=== PATIENT | female | born 1985 | race Caucasian/White ===

== ENCOUNTER → 2023-09-03 | Outpatient (CLI) | payer OTHER | LOC: M WHC 13:34 | PROVIDERS: ATTEND Family Medicine | DX: N63.0 Unspecified lump in unspecified breast (principal) | CPT/HCPCS: 76642; 77066; G0279 ==

== ENCOUNTER → 2024-03-31 | Outpatient (CLI) | payer OTHER | LOC: M RAD 09:21 | PROVIDERS: ATTEND Nurse Practitioner | DX: I83.812 Varicose veins of left lower extremity with pain (principal) ==

== ENCOUNTER 2024-04-15 09:37 | Day surgery (SDC) | payer OTHER ==
[~2024-04-15] VITALS: Ht 170.2 cm; Wt 67.0 kg
[~2024-04-15 09:37] MED LIST: ATEN25TA PO; CITA20TA6 PO; FLUTISP; LIDOCAINE 2% 100MG/5ML SDV (FOR ANES.) As Ordered ONE; MIDAZOLAM INJ 2MG/2ML VIAL As Ordered ONE; ONDANSETRON 4MG 2ML VIAL As Ordered ONE; fentaNYL 100 MCG/2 ML INJECTION As Ordered ONE; propofoL 200 MG/20 ML VIAL As Ordered ONE
[2024-04-15] MEDS ORDERED: LIDOCAINE 1% SDV 5ML VIAL SC PRN (10:05)
[2024-04-15] MEDS ORDERED: FLUTISP (10:14)
[2024-04-15] MEDS: ACETAMINOPHEN 500 MG TAB PO ONE (10:20)
[2024-04-15] MEDS: LR 1,000 ML IV SCH (10:21)
[2024-04-15] MEDS: SCOPOLAMINE 1MG TRANSDERMAL PATCH TOP ONE (10:21)
[2024-04-15] MEDS ORDERED: GLYCOPYRROLATE INJ 0.2 MG/ML 2 ML VIAL As Ordered ONE (11:28)
[2024-04-15] MEDS ORDERED: KETOROLAC 60MG 2ML VIAL As Ordered ONE (11:28)
[2024-04-15] MEDS ORDERED: LR 1,000 ML IV SCH (11:50)
[2024-04-15] MEDS ORDERED: fentaNYL 100 MCG/2 ML INJECTION IV PRN (11:50)
[2024-04-15] MEDS ORDERED: ONDANSETRON 4MG 2ML VIAL IV PRN ×2 (11:50→12:30)
[2024-04-15] MEDS ORDERED: HYDROMORPHONE HCL 0.5 MG/ 0.5 ML SYRINGE IV PRN (11:50)
[2024-04-15] MEDS ORDERED: oxyCODONE 5MG TAB PO PRN ×2 (11:50→12:30)
[2024-04-15] MEDS ORDERED: diphenhydrAMINE 25MG CAP PO PRN (12:30)
[2024-04-15 12:32] VITALS: BP 116/69; TEMP 98.4; O2SAT 100
== END 2024-04-15 13:15 | disposition home or self-care (01) ==
LOC: M SDC 09:37
PROVIDERS: ATTEND General Practice
DX: N84.0 Polyp of corpus uteri (principal); G90.A Postural orthostatic tachycardia syndrome [POTS]; K21.9 Gastro-esophageal reflux disease without esophagitis; M79.7 Fibromyalgia; F41.9 Anxiety disorder, unspecified; Z79.899 Other long term (current) drug therapy; F17.210 Nicotine dependence, cigarettes, uncomplicated
CPT/HCPCS: 36415; 58558; 81025; 86850; 86900; 86901; 88305; J1100; J1596; J1885; J2250; J2405; J3010

== ENCOUNTER 2024-05-20 06:14 | Day surgery (SDC) | payer OTHER ==
[~2024-05-20] VITALS: Ht 170.2 cm; Wt 68.7 kg
[~2024-05-20 06:14] MED LIST changes: -LIDOCAINE 2% 100MG/5ML SDV (FOR ANES.) As Ordered ONE; -MIDAZOLAM INJ 2MG/2ML VIAL As Ordered ONE; -ONDANSETRON 4MG 2ML VIAL As Ordered ONE; -fentaNYL 100 MCG/2 ML INJECTION As Ordered ONE; -propofoL 200 MG/20 ML VIAL As Ordered ONE
[2024-05-20] MEDS: ACETAMINOPHEN 500 MG TAB PO ONE (07:00)
[2024-05-20] MEDS: SCOPOLAMINE 1MG TRANSDERMAL PATCH TOP ONE (07:00)
[2024-05-20 07:17] LABS: BASO % 0.6 % (0.0-1.0); EOS # 0.2 10^3/uL (0.0-0.5); EOS % 3.8 % (0.0-3.0); HEMATOCRIT 41.9 % (36.0-47.0); HEMOGLOBIN 13.9 g/dl (12.0-15.5); LYMPH % 41.8 % (24.0-44.0); MEAN CORPUSCULAR HEMOGLOBIN 29.3 pg (27.0-33.0); MEAN CORPUSCULAR HGB CONC 33.2 g/dl (32.0-36.5); MEAN CORPUSCULAR VOLUME 88.2 fl (80.0-96.0); MONO # 0.4 10^3/uL (0.0-0.8); MONO % 8.8 % (2.0-8.0); NEUTROPHILS # 2.1 10^3/uL (1.5-8.5); NEUTROPHILS % 44.8 % (36.0-66.0); PLATELET COUNT, AUTOMATED 201 10^3/uL (150-450); RED BLOOD COUNT 4.75 10^6/uL (4.00-5.40); WHITE BLOOD COUNT 4.8 10^3/uL (4.0-10.0)
[2024-05-20] MEDS ORDERED: LIDOCAINE 2% 100MG/5ML SDV (FOR ANES.) As Ordered ONE (07:17)
[2024-05-20] MEDS ORDERED: ROCURONIUM BROMIDE 50MG/5ML VIAL As Ordered ONE (07:17)
[2024-05-20] MEDS ORDERED: fentaNYL 250 MCG/5 ML INJECTION As Ordered ONE (07:17)
[2024-05-20] MEDS ORDERED: propofoL 200 MG/20 ML VIAL As Ordered ONE (07:17)
[2024-05-20] MEDS ORDERED: ONDANSETRON 4MG 2ML VIAL As Ordered ONE (07:17)
[2024-05-20] MEDS ORDERED: MIDAZOLAM INJ 2MG/2ML VIAL As Ordered ONE (07:18)
[2024-05-20] MEDS: LR 1,000 ML IV SCH (07:18)
[2024-05-20] MEDS: ceFAZolin SOD 2 GM IV ONCE IV ONE (07:18)
[2024-05-20] MEDS ORDERED: dexmedeTOMIDine (4MCG/ML)200MCG/50ML BTL (PRECEDEX) As Ordered ONE (07:22)
[2024-05-20 07:43] LABS: BLOOD UREA NITROGEN 12 MG/DL (9-23); CALCIUM LEVEL 9.1 MG/DL (8.5-10.1); CARBON DIOXIDE LEVEL 28 MMOL/L (20-31); CHLORIDE LEVEL 106 MMOL/L (98-107); CREATININE FOR GFR 0.79 MG/DL (0.55-1.30); GLOMERULAR FILTRATION RATE > 60.0 (>60); GLUCOSE, FASTING 81 MG/DL (60-100); POTASSIUM SERUM 3.9 MMOL/L (3.5-5.1); SODIUM LEVEL 141 MMOL/L (136-145)
[2024-05-20] MEDS: metroNIDAZOLE 500 MG in IV 1 EA IV ONE (08:00)
[2024-05-20] MEDS ORDERED: ePHEDrine SULFATE 25 MG/5 ML(5MG/ML) SYRINGE As Ordered ONE (08:24)
[2024-05-20] MEDS ORDERED: PHENYLephrine 500MCG 5ML (100MCG/ML) SYRINGE As Ordered ONE (08:24)
[2024-05-20] MEDS ORDERED: HYDROmorphone HCL 2MG/ML 1ML VIAL As Ordered ONE (09:26)
[2024-05-20] MEDS ORDERED: SUGAMMADEX SODIUM 500 MG/5 ML VIAL (BRIDION) As Ordered ONE (09:26)
[2024-05-20] MEDS ORDERED: KETOROLAC 30 MG/ML 1ML VIAL As Ordered ONE (09:26)
[2024-05-20] MEDS ORDERED: GLYCOPYRROLATE INJ 0.2 MG/ML 2 ML VIAL As Ordered ONE (09:38)
[2024-05-20] MEDS: FLUORESCEIN 10% (100MG/ML) 5ML VIAL As Ordered ONE (10:28)
[2024-05-20] MEDS ORDERED: oxyCODONE 5MG TAB PO PRN (11:00)
[2024-05-20] MEDS ORDERED: fentaNYL 100 MCG/2 ML INJECTION IV PRN (11:00)
[2024-05-20] MEDS ORDERED: ONDANSETRON 4MG 2ML VIAL IV PRN (11:00)
[2024-05-20] MEDS: HYDROMORPHONE HCL 0.5 MG/ 0.5 ML SYRINGE IV PRN (12:02)
[2024-05-20 12:20] VITALS: BP 109/61; TEMP 97.2; O2SAT 97
[2024-05-20] MEDS: ONDANSETRON 4MG TAB PO ONE (14:30)
== END 2024-05-20 14:45 | disposition home or self-care (01) ==
LOC: M SDC 06:14
PROVIDERS: ATTEND General Practice
DX: N93.9 Abnormal uterine and vaginal bleeding, unspecified (principal); R10.2 Pelvic and perineal pain; K21.9 Gastro-esophageal reflux disease without esophagitis; M79.7 Fibromyalgia; F41.9 Anxiety disorder, unspecified; Z79.899 Other long term (current) drug therapy; F17.210 Nicotine dependence, cigarettes, uncomplicated
CPT/HCPCS: 36415; 58571; 80048; 81025; 85025; 86850; 86900; 86901; 88307; J0665; J0690; J1100; J1171; J1596; J1836; J1885; J2250; J2371; J2405; J3010

== ENCOUNTER → 2024-09-03 | Outpatient (CLI) | payer OTHER | LOC: M WHC 07:57 | PROVIDERS: ATTEND General Practice | DX: N60.02 Solitary cyst of left breast (principal); R92.333 Mammographic heterogeneous density, bilateral breasts | CPT/HCPCS: 76642; 77066; G0279 ==